=== PATIENT | male | born 1970 | race Two or more races ===

== ENCOUNTER → 2018-08-24 | Outpatient (CLI) | payer OTHER ==
--- NOTE | 2018-08-24 13:21 | RADIOLOGY REPORT (SQ) ---
EXAM DESCRIPTION: CT SINUSES FOR ENT COMPLETED DATE/TIME: 08/24/2018 8:08 am REASON FOR STUDY: CHRONIC SINUSITIS (J32.9) J32.9 CHRONIC SINUSITIS, UNSPECIFIED COMPARISON: None. TECHNIQUE: Noncontrast scanning through the paranasal sinuses using bone algorithm. Reconstructed MPR images reviewed. All images stored on PACS. Images acquired for image guided surgery. All CT scanners at this facility use dose modulation, iterative reconstruction, and/or weight based d osing when appropriate to reduce radiation dose to as low as reasonably achievable (ALARA). [facility]: Dose Right [facility]: CareDose [facility]: Dose Right [facility]: Teradose 4D [facility]: [employer] RADIATION DOSE: mGy. FINDINGS: NASAL PASSAGES: Clear. No polyps or masses. OSTEOMEATAL UNITS AND NASOFRONTAL DUCTS: Patent. No agger nasi or Castillo cells. MAXILLARY SINUSES: Well-pneumatized and clear. Maxillary sinus outlets are patent. ETHMOID SINUSES: Well-pneumatized and clear. SPHENOID SINUSES: Well-pneumatized and clear. No sphenoethmoid air cells or pneumatized pterygoid rec ess. No pneumatized dorsal sella. FRONTAL SINUSES: Well-pneumatized and clear. MASTOID AIR CELLS: Clear. ORBITS: Normal and symmetrical. NASAL SEPTUM: Mild S-shaped curvature No nasal septal spurs. TEMPOROMANDIBULAR JOINTS: Normal. TURBINATES: No pneumatized turbinates. MUCOPERIOSTEAL THICKENING: No. MUCOCELE: No. OTHER: No other significant findings. IMPRESSION: MILD S SHAPED CURVATURE OF THE NASAL SEPTUM. OTHERWISE UNREMARKABLE CT OF THE SINUSES. TECHNICAL DOCUMENTATION: JOB ID: [id number] Quality ID # [id number]: Final reports with documentation of one or more dose reduction techniques (e.g., Au tomated exposure control, adjustment of the mA and/or kV according to patient size, use of iterative reconstruction technique) 2010 [employer]- All Rights Reserved Reading location - IP/workstation name: [email or web address]
== END ==
LOC: RAD 07:26
PROVIDERS: ATTEND Otolaryngology
DX: J32.9 Chronic sinusitis, unspecified (principal)
CPT/HCPCS: 70486

== ENCOUNTER → 2018-10-14 | Outpatient (CLI) | payer OTHER | LOC: OD 13:15 | PROVIDERS: ATTEND Otolaryngology | DX: J32.9 Chronic sinusitis, unspecified (principal) | CPT/HCPCS: 36415; 82785; 86003 ==

== ENCOUNTER 2020-04-16 09:47 | Emergency (ER) | payer OTHER ==
[2020-04-16] MEDS ORDERED: NORMAL SALINE 1000 ML 1,000 ML IV ONE (10:35)
--- NOTE | 2020-04-16 10:59 | RADIOLOGY REPORT (SQ) ---
EXAM DESCRIPTION: CHEST SINGLE VIEW IMAGES COMPLETED DATE/TIME: 04/16/2020 10:50 am REASON FOR STUDY: sobr/?covid COMPARISON: 2013. FINDINGS: One-view chest AP portable upright. Low lung volumes contributing to vascular crowding and subsegmental atelectasis. Suspicion of bilateral pneumonia including left basilar and right mid lung zone. TECHNICAL DOCUMENTATION: JOB ID: [id number] Reading location - IP/workstation name: [email or web address]
[2020-04-16 11:28] LABS: INTERNATIONAL RATION (INR) 1.01; PROTHROMBIN TIME 13.6 SEC (11.4-15.4)
[2020-04-16 11:48] LABS: ABSOLUTE NEUT (AUTO) 3.8 10^3/uL (1.7-8.2); BASOPHILS % (AUTO) 0.3 % (0-2); EOSINOPHILS % (AUTO) 0.1 % (0-6); TOTAL CELLS COUNTED % (AUTO) 100 %; WHITE BLOOD COUNT 4.9 10^3/uL (4.0-10.5)
[2020-04-16 11:53] LABS: ABSOLUTE LYMPHOCYTES (AUTO) 0.8 10^3/uL (0.5-4.7); ABSOLUTE MONOCYTES (AUTO) 0.4 10^3/uL (0.1-1.4); ALBUMIN 4.2 g/dL (3.5-5.0); ALKALINE PHOSPHATASE 56 U/L (38-126); ANION GAP 10 (5-19); ASPARTATE AMINO TRANSFERASE 73 U/L (17-59); BILIRUBIN,DIRECT 0.4 mg/dL (0.0-0.4); BILIRUBIN,TOTAL 0.9 mg/dL (0.2-1.3); BLOOD UREA NITROGEN 12 mg/dL (7-20); CALCIUM 8.7 mg/dL (8.4-10.2); CARBON DIOXIDE 26 mmol/L (22-30); CHLORIDE 102 mmol/L (98-107); GLUCOSE 142 mg/dL (75-110); HEMATOCRIT 42.5 % (37.9-51.0); HEMOGLOBIN 14.6 g/dL (13.5-17.0); LYMPHOCYTES % (AUTO) 15.4 % (13-45); MEAN CORPUSCULAR HEMOGLOBIN 29.9 pg (27.0-33.4); MEAN CORPUSCULAR HGB CONC 34.2 g/dL (32.0-36.0); MEAN CORPUSCULAR VOLUME 87 fl (80-97); MONOCYTES % (AUTO) 7.2 % (3-13); PLATELET COUNT 219 10^3/uL (150-450); POTASSIUM 4.4 mmol/L (3.6-5.0); RED BLOOD COUNT 4.86 10^6/uL (4.35-5.55); RED CELL DISTRIBUTION WIDTH 13.4 % (11.5-14.0); TOTAL PROTEIN 7.8 g/dL (6.3-8.2)
[2020-04-16 12:01] LABS: NT PRO BNP < 11 pg/mL (<125); TROPONIN I < 0.012 ng/mL
--- NOTE | 2020-04-16 13:55 | RADIOLOGY REPORT (SQ) ---
EXAM DESCRIPTION: CT CHEST WITH IMAGES COMPLETED DATE/TIME: 04/16/2020 10:29 am REASON FOR STUDY: sobr/covid suspicion COMPARISON: Single-view chest same date. TECHNIQUE: CT scan of the chest performed using helical scanning technique with dynamic intravenous contrast injection. Images reviewed with lung, soft tissue and bone windows. Reconstructed coronal and sagittal MPR and MIP images reviewed. All images stored on PACS. All CT scanners at this facility use dose modulation, iterative reconstruction, and/or weight based d osing when appropriate to reduce radiation dose to as low as reasonably achievable (ALARA). [facility]: Dose Right [facility]: CareDose [facility]: Dose Right [facility]: Teradose 4D [facility]: [employer] CONTRAST TYPE AND DOSE: contrast/concentration: Isovue 350.00 mmol/ml; Total Contrast Delivered: 80. 0 ml; Total Saline Delivered: 55.0 ml RENAL FUNCTION: Creatinine 1.05 RADIATION DOSE: CT Rad equipment meets quality standard of care and radiation dose reduction techniq ues were employed. CTDIvol: 17.1 mGy. DLP: 631 mGy-cm. . LIMITATIONS: None. FINDINGS: LUNGS AND PLEURA: Bilateral patchy ground-glass opacities in the upper lobes bilaterally, slightly more prominent on the right. Some mild involvement of the lower lobes and right middle lobe . Bilateral dependent atelectasis. No significant pleural effusion or thickening. No pneumothorax. HILAR AND MEDIASTINAL STRUCTURES: No identified masses or abnormal nodes. HEART AND VASCULAR STRUCTURES: No aneurysm or dissection. No central pulmonary emboli. No pericardi al effusion. Coronary artery calcifications. HARDWARE: None in the chest. UPPER ABDOMEN: Hepatic steatosis. THYROID AND OTHER SOFT TISSUES: No masses. No adenopathy. BONES: No significant finding. OTHER: No other significant finding. IMPRESSION: 1. Bilateral patchy ground-glass opacities, predominantly in the upper lobes and slight ly more pronounced on the right suspicious for infection. Pattern is suggestive of COVID 19 infectio n, though other etiologies are also possible. 2. Hepatic steatosis. TECHNICAL DOCUMENTATION: JOB ID: [id number] Quality ID # [id number]: Final reports with documentation of one or more dose reduction techniques (e.g., Au tomated exposure control, adjustment of the mA and/or kV according to patient size, use of iterative reconstruction technique) 2010 [employer]- All Rights Reserved Reading location - IP/workstation name: [email or web address]
[2020-04-16 14:34] LABS: APPEARANCE,URINE CLEAR; BILIRUBIN,URINE NEGATIVE (NEGATIVE); COLOR,URINE YELLOW; GLUCOSE, URINE NEGATIVE (NEGATIVE); KETONES,URINE 20 mg/dL (NEGATIVE); LEUKOCYTE ESTERASE,URINE NEGATIVE (NEGATIVE); NITRITE,URINE NEGATIVE (NEGATIVE); PROTEIN,URINE NEGATIVE (NEGATIVE)
[2020-04-16 14:36] LABS: URINE SPECIFIC GRAVITY > 1.060
[2020-04-16] MEDS ORDERED: DEXAMETHASONE SOD PHOS INJ 10 MG/1 ML VIAL IV ONE (15:55)
--- NOTE | 2020-04-16 16:39 | ER Document Report ---
Entered by TU VERA SCRIBE 04/16/20 1022 Acting as scribe for:GERALD PEGUERO MD ED General - General Chief Complaint: Weakness Stated Complaint: SHORTNESS OF BREATH Time Seen by Provider: 04/16/20 10:10 Primary Care Provider: JAMES HENDRICKS DO [ASSOCIATE] - Follow up as needed Information source: Patient Notes: This 49 year old male patient presents to the emergency department today with complaints of worsening general weakness, fever, and chills for the past x10 days. Patient states his was tested covid + and reports his symptoms began x1 day after. Patient reports diarrhea, shortness of breath, and loss of taste. Patient states he was not tested for covid the same day as his because "the test costs $160". Denies history of smoking and does not take any regular medications other than for his allergies. Patient fainted briefly for seconds around 30 minutes after being seen, when the nurse was trying to put in an IV for blood collection. Patient was sweaty, alert, and talking, with no seizure activity. Denies chest pain. Patient states he cannot stand the sight of needles. TRAVEL OUTSIDE OF THE [place] IN LAST 30 DAYS: No - Related Data Allergies/Adverse Reactions: niacin [Niacin] Allergy (Verified 04/16/20 11:33) Home Medications: metformin. atorvastatin. cetirizine Past Medical History - General Information source: Patient, [facility] Records - Social History Smoking Status: Never Smoker Cigarette use (# per day): No Chew tobacco use (# tins/day): No Frequency of alcohol use: None Drug Abuse: None Lives with: Family Family History: Reviewed & Not Pertinent Renal/ Medical History: Denies: Hx Peritoneal Dialysis GI Medical History: Reports: Hx Endoscopy Review of Systems - Review of Systems Constitutional: See HPI, Chills, Fever, Weakness EENT: See HPI Cardiovascular: No symptoms reported Respiratory: See HPI, Short of breath Gastrointestinal: See HPI, Diarrhea Genitourinary: No symptoms reported Male Genitourinary: No symptoms reported Musculoskeletal: No symptoms reported Skin: No symptoms reported Hematologic/Lymphatic: No symptoms reported Neurological/Psychological: No symptoms reported -: Yes All other systems reviewed and negative Physical Exam - Vital signs Vitals: Temp Pulse Resp BP Pulse Ox 98.3 F 101 H 18 125/77 94 04/16/20 09:53 04/16/20 09:53 04/16/20 09:53 04/16/20 09:53 04/16/20 09:53 - General General appearance: Alert - HEENT Head: Normocephalic, Atraumatic Eyes: Normal Pupils: PERRL Pharynx: Normal. No: Erythema, Exudate Neck: Supple. No: Lymphadenopathy Notes: No tenderness with palpation to the frontal and maxillary sinuses. - Respiratory Chest status: Nontender Chest palpation: Normal Notes: Rales to the bilateral lung bases, R>L. No respiratory distress. Saturating 94% on room air. - Cardiovascular Rhythm: Regular Heart sounds: Normal auscultation, S1 appreciated, S2 appreciated Murmur: No - Abdominal Inspection: Normal, Other - soft Distension: No distension Bowel sounds: Normal Tenderness: Nontender - Extremities General upper extremity: Normal inspection, Normal ROM General lower extremity: Normal inspection, Normal ROM. No: Edema - Neurological Neuro grossly intact: Yes Cognition: Normal Orientation: AAOx4 Edison Coma Scale Eye Opening: Spontaneous Edison Coma Scale Verbal: Oriented Edison Coma Scale Motor: Obeys Commands Edison Coma Scale Total: 15 Speech: Normal Sensory: Normal - Psychological Associated symptoms: Normal affect, Normal mood - Skin Skin Temperature: Warm Skin Moisture: Dry Skin Color: Normal Course - Re-evaluation Re-evalutation: 04/16/20 16:12 Patient resting with a resting sat between 97 and 99%. However when patient walks down the malhotra patient's desats down to 88%. Therefore I submitted and discussed and consulted with hospitalist regarding admission to the hospital for low saturation with minimal exertion and Covid positive with Covid pneumonia. Lead hospitalist stated that patient most likely can be discharged home and therefore can be followed up as an outpatient and to begin some anti-i nflammatories steroids ivermectin some vitamins and zinc. Also advised patient to not exert himself drink plenty of fluids and and hopefully improve. If no improvement patient is advised to return to the emergency department immediately. - Vital Signs Vital signs: Temp Pulse Resp BP Pulse Ox 98.3 F 101 H 22 H 127/89 H 96 04/16/20 09:53 04/16/20 10:00 04/16/20 12:00 04/16/20 12:00 04/16/20 12:00 04/16/20 16:13 Vital signs sinus tachycardia at 101 otherwise pulse ox 96% at room air. - Laboratory Results Result Diagrams: 04/16/20 10:55 04/16/20 10:55 Laboratory Results Interpreted: 04/16/20 04/16/20 04/16/20 10:55 11:03 14:10 Glucose 142 H POC Glucose 140 H Ferritin 614.00 H AST 73 H ALT 111 H Lactate Dehydrogenase 316 H C-Reactive Protein 59.0 H Urine Ketones 20 H Urine Urobilinogen 2.0 H Laboratories show elevated C-reactive protein elevated ferritin. The only critical values in fact the patient has COVID-19 positive. Critical Laboratory Results Reviewed: Yes Attending or Supervising Physician who Reviewed Labs: GERALD PEGUERO - COVID-19 positive - Radiology Results Radiology Results Interpreted: 04/16/20 16:[address] 04/16/20 12:36 IMPRESSION: 1. Bilateral patchy ground-glass opacities, predominantly in the upper lobes and slightly more pronounced on the right suspicious for infection. Pattern is suggestive of COVID 19 infection, though other etiologies are also possible. 2. Hepatic steatosis. Patient has bilateral patchy groundglass opacities in upper lobes more on the right. Critical Radiology Results Reviewed: Yes Attending or Supervising Physician who Reviewed Radiology: GERALD PEGUERO - Bilateral groundglass opacities consistent with COVID-19. - EKG Interpretation by Me Additional EKG results interpreted by me: 04/16/20 16:16 Twelve-lead EKG shows a normal left sinus rhythm rate of 86, left axis deviation intervals HI QRS and QT intervals within normal range no evidence for a STEMI. Discharge - Discharge Clinical Impression: Pneumonia due to COVID-19 virus, Generalized weakness, Dyspnea on minimal exertion Condition: Fair Disposition: HOME, SELF-CARE Instructions: Fever ([facility]) Additional Instructions: You have COVID-19 viral pneumonia and generalized weakness and some shortness of breath. Associated with this you have been prescribed steroid medications to assist in decreasing the inflammatory reaction that you are having. Also we will recommend to control your activity and not be too exertional in your daily activities. We have noted that you decrease your oxygen when you walk down the malhotra today. In addition we are recommending that you begin zinc tablets 50 mg tablet 1 tablet once a day this this tab is [id number] as well as the remaining tablets that I am mentioning here that you are to begin vitamin C 1000 mg twice a day x2 weeks vitamin D 5000 international units once a day for 2 weeks. Prescriptions: Prednisone [Deltasone 10 mg Tablet] 10 mg PO BID 10 Days #15 tablet Prednisone [Deltasone 20 mg Tablet] 2 tab PO DAILY 5 Days #10 tablet Prednisone [Deltasone 5 mg Tablet] 5 mg PO DAILY #5 tablet Referrals: JAMES HENDRICKS DO [ASSOCIATE] - Follow up as needed I personally performed the services described in the documentation, reviewed and edited the documentation which was dictated to the scribe in my presence, and it accurately records my words and actions.
--- NOTE | 2020-04-16 17:57 | EKG REPORT ---
SEVERITY:- ABNORMAL ECG - SINUS RHYTHM LEFT VENTRICULAR HYPERTROPHY NONSPECIFIC T ABNORMALITIES, INFERIOR LEADS : Confirmed by: Gorge Herrera MD 16-Apr-2020 17:56:14
[2020-04-16 18:43] VITALS: BP 142/67
== END 2020-04-16 18:47 | disposition home or self-care (01) ==
LOC: ER 09:47
DX: U07.1 COVID-19 (principal); J12.82 Pneumonia due to coronavirus disease 2019; R06.02 Shortness of breath; K76.0 Fatty (change of) liver, not elsewhere classified; Z79.84 Long term (current) use of oral hypoglycemic drugs; Z79.899 Other long term (current) drug therapy; Z88.8 Allergy status to other drugs, medicaments and biological substances
CPT/HCPCS: 93005; 99285; 96361; 96374; 36415; 82962; 82728; 83605; 83615; 85025; 85610; 0241U ×4; 86140; 80053; 81001; 84484; 85379; 83880; 71045; 71260; 93010; J7030; J1100; C9803